=== PATIENT | female | born 1975 | race Two or more races ===

== ENCOUNTER 2022-01-31 16:21 | Emergency (ER) | payer OTHER ==
[~2022-01-31] VITALS: Ht 154.9 cm; Wt 74.4 kg
== END 2022-01-31 19:43 | disposition home or self-care (01) ==
LOC: ER 16:21
DX: R51.9 Headache, unspecified (principal); Z91.013 Allergy to seafood; Z88.6 Allergy status to analgesic agent

== ENCOUNTER 2022-09-10 13:19 | Emergency (ER) | payer OTHER ==
[~2022-09-10] VITALS: Ht 154.9 cm; Wt 77.1 kg
== END 2022-09-10 18:48 | disposition home or self-care (01) ==
LOC: ER 13:19
DX: G43.909 Migraine, unspecified, not intractable, without status migrainosus (principal)